=== PATIENT | female | born 2000 | race Caucasian/White ===

== ENCOUNTER 2024-09-25 09:45 | Outpatient (CLI) | payer BC | END 2024-09-25 09:46 | disposition home or self-care (01) | LOC: ULT 09:45 | PROVIDERS: ATTEND Family Medicine | DX: R11.0 Nausea (principal) | CPT/HCPCS: 76700 ==

== ENCOUNTER 2024-11-17 14:01 | Outpatient (CLI) | payer BC ==
[~2024-11-17 14:01] MED LIST: Iopamidol 370 76% 100 ML VIAL ONE
== END 2024-11-17 14:02 | disposition home or self-care (01) ==
LOC: CT 14:01
PROVIDERS: ATTEND Internal Medicine Gastroenterology
DX: R63.4 Abnormal weight loss (principal)
CPT/HCPCS: 74178; Q9967

== ENCOUNTER 2025-02-02 15:12 | Outpatient (CLI) | payer BC | END 2025-02-02 15:13 | disposition home or self-care (01) | LOC: SCSRAD 15:12 | PROVIDERS: ATTEND Family Medicine | DX: R22.1 Localized swelling, mass and lump, neck (principal) | CPT/HCPCS: 72040 ==